=== PATIENT | male | born 1980 | race Caucasian/White ===

== ENCOUNTER 2017-03-21 23:06 | Emergency (ER) | payer OTHER ==
[2017-03-21 23:18] VITALS: BP 142/92
--- NOTE | 2017-03-21 23:46 | PHYS DOC ---
Past Medical History Past Medical History: Diabetes-Type II, Hypertension, NC Past Surgical History: Appendectomy Additional Past Surgical Histo: RIGHT KNEE,CARDIAC CATH WITH X 1STENT PLACEMENT Alcohol Use: None Drug Use: None Adult General Chief Complaint Chief Complaint: LACERATION/AVULSION HPI HPI Patient is a 37 year old male with history of hypertension, diabetes type 2, NC , who presents today with a laceration on the left hand. Patient states he was opening something with a knife and the knife cut him. He is right-handed. Review of Systems Review of Systems Constitutional: Denies fever or chills [] Eyes: Denies change in visual acuity, redness, or eye pain [] Musculoskeletal: Denies back pain or joint pain [] Integument: Left hand laceration Neurologic: Denies headache, focal weakness or sensory changes [] Endocrine: Denies polyuria or polydipsia [] Allergies Allergies Allergies Coded Allergies Type Severity Reaction Last Updated Verified diphenhydramine Allergy Intermediate SHAKES 03/21/17 Yes morphine Allergy Intermediate HIVES 03/21/17 Yes Physical Exam Physical Exam Constitutional: Well developed, well nourished, no acute distress, non-toxic appearance. [] HENT: Normocephalic, atraumatic, bilateral external ears normal, oropharynx moist, no oral exudates, nose normal. [] Skin: Webspace between the thumb and index finger with a superficial laceration approximately 1 cm long, this no obvious tendon involvement. Bleeding has stopped, laceration was closed itself. Full range of motion to the left hand and fingers. Adequate ulnar medial radial sensation to the left hand. +2 left radial pulse. Cap refill less than 2 seconds the left upper extremity. Sensation intact to the left upper extremity. Back: No tenderness, no CVA tenderness. [] Extremities: No tenderness, no cyanosis, no clubbing, ROM intact, no edema. [] Neurologic: Alert and oriented X 3, normal motor function, normal sensory function, no focal deficits noted. [] Psychologic: Affect normal, judgement normal, mood normal. [] Current Patient Data Vital Signs Vital Signs Date Time Temp Pulse Resp B/P Pulse Ox O2 Delivery O2 Flow Rate FiO2 03/21/17 23:18 98.6 90 18 99 Room Air 98.6 EKG EKG [] Radiology/Procedures Radiology/Procedures [] Course & Med Decision Making Course & Med Decision Making Pertinent Labs and Imaging studies reviewed. (See chart for details) Patient is in the ED with a laceration between the webspace of the thumb and index finger on the left hand, the laceration is very superficial, by the time he arrived to the ED the laceration was already closed. Bleeding had stopped. I Cleaned the area. Applied Dermabond to keep the area closed. Steri-Strips applied to the area. Tetanus is up-to-date. Left hand x-rays interpreted by Dr. Hernandez are negative for any acute findings Dragon Disclaimer Dragon Disclaimer This electronic medical record was generated, in whole or in part, using a voice recognition dictation system. Departure Departure Impression: Primary Impression: Hand laceration Disposition: 01 HOME, SELF-CARE Condition: STABLE Patient Instructions: Laceration Care, Adult Additional Instructions: You were seen for laceration of the left hand, the laceration did not need stitches in the ED. Keep the area clean and dry. Apply Neosporin to the area twice a day. Monitor it for signs and symptoms of infection including increased redness warmth or odor drainage from the area and return to the ED if they occur. Follow-up with your doctor in 1-2 weeks as needed. Problem Qualifiers Primary Impression: Hand laceration Encounter type: initial encounter Laterality: left Qualified Code: S61.412A - Laceration without foreign body of left hand, initial encounter TRINA EDMONDSON APRN Mar 21, 2017 23:46
--- NOTE | 2017-03-22 08:05 | RAD ---
Three-view left hand radiographs 03/21/2017 Clinical history: Laceration to the left hand. PA, lateral, and oblique digital radiographs of the left hand were obtained. No fracture or dislocation of the left hand is seen. No radiopaque foreign body is noted. Impression: No fracture or dislocation of the left hand is seen.
== END 2017-03-22 00:13 | disposition home or self-care (01) ==
LOC: ER 23:06
DX: S61.412A Laceration without foreign body of left hand, initial encounter (principal); E11.9 Type 2 diabetes mellitus without complications; I25.2 Old myocardial infarction; I10 Essential (primary) hypertension; Z88.8 Allergy status to other drugs, medicaments and biological substances; Z95.5 Presence of coronary angioplasty implant and graft; Z88.5 Allergy status to narcotic agent; W26.0XXA Contact with knife, initial encounter; Y93.89 Activity, other specified; Y92.89 Other specified places as the place of occurrence of the external cause; Y99.8 Other external cause status
CPT/HCPCS: 12001; 73130; 99284-25